=== PATIENT | male | born 2000 ===

== ENCOUNTER 2021-02-19 17:01 | Emergency (ER) | payer SELFPAY ==
[~2021-02-19] VITALS: Ht 200.7 cm; Wt 104.3 kg
[2021-02-19 17:32] VITALS: BP 121/70
--- NOTE | 2021-02-19 18:00 | NUR ---
team guide: Pt ambulatory to room from lobby at this time.
--- NOTE | 2021-02-19 18:12 | NUR ---
ASSUMED CARE OF PT. HE REPORTS SEVERAL SX THAT HAVE BEEN ONGOING FROM CONFUSION, DISORIENTATION, POOR APPETITE, INTERMITTENT HEADACHE. PT INSTRUCTED TO CHANGE INTO HOSPITAL GOWN. PANKAJ, CALL LIGHT W/IN REACH.
--- NOTE | 2021-02-19 18:54 | NUR ---
SBAR REPORT GIVEN TO JUNIOR
--- NOTE | 2021-02-19 19:13 | NUR ---
PT RESTING ON CANDELARIO. LABS ORDERED
[2021-02-19 19:31] LABS: BASOPHILS % (AUTO) 1 % (0-1); EOSINOPHILS % (AUTO) 4 % (1-7); HCT (SEDRATE) 43.7 % (39.2-51.8); LYMPHOCYTES % (AUTO) 43 % (22-44); MEAN CORPUSCULAR HEMOGLOBIN 28.3 pg (27.5-34.5); MEAN CORPUSCULAR HGB CONC 33.2 g/dL (33.2-36.2); MEAN PLATELET VOLUME 9.5 fL (7.4-10.4); MONOCYTES % (AUTO) 10 % (2-9); NEUTROPHILS % (AUTO) 42 % (42-75); PLATELET COUNT 206 x10^3/uL (130-400); RED CELL DISTRIBUTION WIDTH 14.5 % (9.4-14.8)
[2021-02-19 19:44] LABS: ALBUMIN 3.7 g/dL (3.4-5.0); ANION GAP 6 mmol/L (5-15); CALCIUM 9.2 mg/dL (8.5-10.1); CHLORIDE 108 mmol/L (98-107)
[2021-02-19 20:12] LABS: ALANINE AMINOTRANSFERASE 73 U/L (12-78); ALKALINE PHOSPHATASE 98 U/L (45-117); BILIRUBIN,TOTAL 0.4 mg/dL (0.2-1.0); C-REACTIVE PROTEIN, QUANT 0.07 mg/dL (0.02-0.49); CREATININE 1.25 mg/dL (0.7-1.3); TOTAL PROTEIN 8.2 g/dL (6.4-8.2)
[2021-02-21 16:21] LABS: ANA SCREEN NEGATIVE (Negative)
== END 2021-02-19 21:51 | disposition home or self-care (01) ==
LOC: ED 20:00
DX: G44.52 New daily persistent headache (NDPH) (principal); R53.83 Other fatigue; R53.81 Other malaise; M54.2 Cervicalgia; R42 Dizziness and giddiness
CPT/HCPCS: 36415; 80053; 82607; 84443; 85025; 85651; 86038; 86140; 86308; 99283